=== PATIENT | male | born 1965 | race Caucasian/White ===

== ENCOUNTER 2020-09-10 13:09 | Outpatient (REF) | payer OTHER, SELFPAY ==
--- NOTE | 2020-09-10 13:19 | ECG_ITS ---
Test Reason : R00.2 Blood Pressure : / mmHG Vent. Rate : 051 BPM Atrial Rate : 051 BPM P-R Int : 142 ms QRS Dur : 092 ms QT Int : 444 ms P-R-T Axes : 270 052 017 degrees QTc Int : 409 ms Unusual P axis, possible ectopic atrial bradycardia Abnormal ECG When compared with ECG of 28-MAY-2019 16:54, Ectopic atrial rhythm has replaced Sinus rhythm Referred By: Izzy Faustin Electronically Signed By:MEL CHAPMAN MD
--- NOTE | 2020-09-10 13:37 | XR_ITS ---
EXAMINATION: XR CHEST CLINICAL INFORMATION: Cough COMPARISON: 01/03/2020 TECHNIQUE: 2 views of the chest were obtained. FINDINGS: The lungs are well expanded. There is no focal consolidation, edema, or effusion. No pneumothorax. The cardiomediastinal silhouette is within normal limits. No acute osseous abnormality. Chronic healed right lateral rib fractures. IMPRESSION: Clear lungs.
== END 2020-09-10 13:10 | disposition home or self-care (01) ==
LOC: HO.XRAY 13:09
PROVIDERS: PCP Nurse Practitioner Primary Care; Visit Provider Nurse Practitioner Primary Care
DX: R00.1 Bradycardia, unspecified (principal); R05 Cough
CPT/HCPCS: 71046; 93005

== ENCOUNTER 2020-10-16 09:56 | Outpatient (REF) | payer OTHER, SELFPAY ==
--- NOTE | 2020-10-16 | PFT_ITS ---
FLOWS: FEV1 of 109% of predicted at 4.34 L. FVC 111% of predicted at 5.58 L. FEV1 to FVC ratio of 0.78. No bronchodilator response. LUNG VOLUMES: Total lung capacity 107% of predicted at 7.73 L. Residual volume 92% of predicted at 2.01 L. Slow vital capacity 114% of predicted at 5.72 L. Expiratory reserve volume 79% of predicted at 1.22 L. Diffusion capacity is mildly decreased. IMPRESSION: No obstructive or restrictive ventilatory defect. No bronchodilator response. Decreased diffusion capacity suggests emphysema. MD AMAURI Mcintosh/MODL / [id number]
== END 2020-10-16 09:57 | disposition home or self-care (01) ==
LOC: HO.RESP 09:56
PROVIDERS: Visit Provider Family Medicine
DX: R05 Cough (principal); F17.200 Nicotine dependence, unspecified, uncomplicated
CPT/HCPCS: 94060; 94727; 94729